=== PATIENT | female | born 1955 | race Caucasian/White ===

== ENCOUNTER 2018-03-02 01:32 | Emergency (ER) | payer OTHER ==
[~2018-03-02] VITALS: Ht 157.5 cm; Wt 95.3 kg
[~2018-03-02 01:32] MED LIST: NOHOMEMEDICATIONS
[2018-03-02 03:00] VITALS: BP 125/59
== END 2018-03-02 03:00 | disposition home or self-care (01) ==
LOC: M.ERS 01:32
DX: S83.094A Other dislocation of right patella, initial encounter (principal); X58.XXXA Exposure to other specified factors, initial encounter; Y93.89 Activity, other specified; Y92.89 Other specified places as the place of occurrence of the external cause; Y99.8 Other external cause status